=== PATIENT | female | born 1960 | race Caucasian/White ===

== ENCOUNTER → 2018-02-15 | Outpatient (CLI) | payer MEDICARE, MEDICAID ==
[~2018-02-15] MED LIST: GADOBENATE 529MG/1ML 15ML VIAL IVP ONE
--- NOTE | 2018-02-15 14:53 | RADIOLOGY IMAGING REPORT ---
FACILITY: [facility] - [place] PATIENT NAME: Tabitha Crawford : 1960 MR: [id number] V: [id number] EXAM DATE: ORDERING PHYSICIAN: JEFF PARMAR TECHNOLOGIST: Location: [facility] Patient: Tabitha Crawford : 1960 Visit/Account:[id number] Date of Sevice: 02/15/2018 BRAIN W W/O CONTRAST Comparisons: None. Additional pertinent history: Follow-up stroke with psychosis. TECHNIQUE: Multiplanar, multisequence brain MRI was performed with and without gadolinium contrast. CONTRAST: 14 ml of MultiHance. FINDINGS: Postoperative changes: Patient status post previous right frontal craniotomy and a right posterior te mporal craniotomy. Previous resection of the midportion of the right temporal lobe Sagittal midline structures and craniocervical junction: Negative. Midline shift: None. Ventricles: Negative. Brain parenchyma: Diffusion weighted imaging: Negative. Gradient sequence: Negative. T2 weighted FLAIR images: Prominent region of encephalomalacia involving the midportion of the righ t temporal lobe with mild surrounding abnormal increased T2 signal compatible with gliosis. Few scat tered foci of abnormal increased T2 signal within the periventricular and subcortical white matter co mpatible with small vessel ischemic change on a chronic basis. Extra-axial spaces: Mild cerebral atrophy. Dural venous sinuses and major arterial flow voids: Negative. Intracranial enhancement: Negative.. Mastoid air cells and paranasal sinuses: Negative. Surrounding soft tissues and orbits: Negative. Impression: 1. Large region of encephalomalacia involving the mid right temporal lobe with surrounding gliosis. 2. Other age-related changes as described above. 3. No acute intracranial pathology. Report Dictated By: Kenneth Gifford MD at 02/15/2018 2:46 PM Report E-Signed By: Kenneth Gifford MD at 02/15/2018 2:50 PM [id number]
== END ==
LOC: MRI 04:22
PROVIDERS: ATTEND Psychiatry & Neurology Neurology
DX: G93.89 Other specified disorders of brain (principal); F29 Unspecified psychosis not due to a substance or known physiological condition; I63.9 Cerebral infarction, unspecified
CPT/HCPCS: 70553; A9577

== ENCOUNTER → 2018-11-15 | Outpatient (CLI) | payer MEDICARE, MEDICAID ==
--- NOTE | 2018-11-26 10:21 | RADIOLOGY IMAGING REPORT ---
FACILITY: [facility] - [place] PATIENT NAME: Tabitha Crawford : 1960 MR: [id number] V: [id number] EXAM DATE: ORDERING PHYSICIAN: ELKE OTT TECHNOLOGIST: Location: [facility] [place] Patient: Tabitha Crawford : 1960 Visit/Account:[id number] Date of Sevice: 11/15/2018 ADDENDUM: Outside films dated 10/28/2017, 10/17/2016 and 10/16/2015 have been obtained. There is no interval change from prior exams. IMPRESSION: 1. BI-RADS 1 Negative: Recommend routine screening mammography in one year Report E-Signed By: Jero Cortes MD at 11/25/2018 12:50 PM WSN:[id number] EXAM(S): Bilateral DIGITAL SCREEN BILAT MAMMOGRAM REASON FOR EXAM: screening. FILMS COMPARED: Prior films will be obtained from [place] MAMMOGRAM FINDINGS: The following mammographic views were obtained: bilateral CC and MLO. This mammogram was interpreted with the assistance of computer aided detection, iCAD version 7.2. The breasts are heterogeneously dense, which may obscure small masses. There are no mammographic findings suspicious for malignancy. IMPRESSION: Negative (BI-RADS Category 1) RECOMMENDATION: Routine screening mammogram in 1 year. Report Report electronically signed via 3rd democrat system
== END ==
LOC: MAMO 09-28 01:06
PROVIDERS: ATTEND Nurse Practitioner Family
DX: Z12.31 Encounter for screening mammogram for malignant neoplasm of breast (principal)
CPT/HCPCS: 77063; 77067